=== PATIENT | female | born 1975 | race Caucasian/White ===

== ENCOUNTER 2021-03-22 10:51 | Emergency (ER) | payer MEDICAID, SELFPAY ==
[~2021-03-22] VITALS: Ht 162.6 cm; Wt 65.3 kg
[2021-03-22 11:07] VITALS: BP 138/75
--- NOTE | 2021-03-22 12:27 | NUR ---
[employer] ATTEMPTED TO SEE PT, NO ANSWER IN LOBBY OR TENT
--- NOTE | 2021-03-22 12:45 | NUR ---
CALLED PT VIA TELEPHONE, NO ANSWER, UNABLE TO LEAVE VOICEMAIL
--- NOTE | 2021-03-22 13:04 | NUR ---
ATTEMPTED TO CALL PT A FINAL TIME, NO ANSWER. PATIENT LEFT WITHOUT BEING SEEN BY [employer]IN SPICER. NO FURTHER CARE PROVIDED FOR PATIENT.
== END 2021-03-22 13:04 | disposition left against medical advice (07) ==
LOC: MED 10:51
DX: R06.02 Shortness of breath (principal); Z20.822 Contact with and (suspected) exposure to COVID-19

== ENCOUNTER 2023-09-24 03:55 | Emergency (ER) | payer MEDICAID ==
[~2023-09-24] VITALS: Ht 162.6 cm; Wt 65.8 kg
[2023-09-24 04:00] VITALS: BP 148/79; PULSE 85; RESP 17; TEMP 97.7; O2SAT 98
[2023-09-24 04:08] VITALS: O2SAT 98
[2023-09-24] MEDS ORDERED: methylPREDNISolone SS 125 MG in WATER STERILE 2 ML IV ONE (04:10)
[2023-09-24 04:17] VITALS: BP 148/79; TEMP 97.7
[2023-09-24] MEDS: ALBUTEROL 0.083% 2.5 MG/3 ML NEBU INH ONE ×3 (04:32→05:43)
[2023-09-24] MEDS: NACL 0.9% 1,000 ML IV ONE (04:37)
[2023-09-24 04:49] VITALS: PULSE 86; RESP 19; O2SAT 98; O2SAT 99
[2023-09-24 05:43] VITALS: PULSE 74; RESP 19; O2SAT 98
[2023-09-24] MEDS ORDERED: PRED20TA5 PO (05:55)
[2023-09-24] MEDS ORDERED: ALBU0.0912 INH (05:55)
[2023-09-24 06:00] VITALS: O2SAT 98
== END 2023-09-24 06:00 | disposition home or self-care (01) ==
LOC: MED 03:55
DX: J45.901 Unspecified asthma with (acute) exacerbation (principal); R07.89 Other chest pain; Z79.899 Other long term (current) drug therapy
CPT/HCPCS: 71045; 94640; 96360; 99285; J7030; J7613; Q0092